=== PATIENT | male | born 1995 | race Caucasian/White ===

== ENCOUNTER 2017-12-31 13:57 | Emergency (ER) | payer OTHER | END 2017-12-31 19:00 | disposition home or self-care (01) | LOC: M ED 13:57 | DX: F07.81 Postconcussional syndrome (principal); F17.210 Nicotine dependence, cigarettes, uncomplicated | CPT/HCPCS: 70450 ==

== ENCOUNTER 2019-06-16 03:40 | Emergency (ER) | payer OTHER ==
[~2019-06-16] VITALS: Ht 182.9 cm; Wt 88.6 kg
[~2019-06-16 03:40] MED LIST: VICO5TAB17 PO
[2019-06-16 05:26] VITALS: BP 132/77
--- NOTE | 2019-06-16 08:24 | REP ---
Left hand: Four views. History: Injury in a fall. Findings: There is a fracture of the distal end of the fifth metacarpal with slight apex dorsal angulation. There is overlying soft tissue swelling. There is old post-traumatic deformity at the PIP joint of the long finger with some soft tissue swelling. No acute fracture is seen. Impression: Distal fifth metacarpal fracture with slight apex dorsal angulation. Overlying soft tissue swelling. Old post-traumatic deformity at the PIP joint of the long finger. Electronically Signed by Vinicio Nguyen MD 06/16/2019 08:16 A
== END 2019-06-16 05:25 | disposition home or self-care (01) ==
LOC: M ED 03:40
DX: S62.367A Nondisplaced fracture of neck of fifth metacarpal bone, left hand, initial encounter for closed fracture (principal); W00.0XXA Fall on same level due to ice and snow, initial encounter; Y92.410 Unspecified street and highway as the place of occurrence of the external cause; Y93.01 Activity, walking, marching and hiking; Y99.8 Other external cause status; F17.210 Nicotine dependence, cigarettes, uncomplicated